=== PATIENT | female | born 1990 | race Caucasian/White ===

== ENCOUNTER 2023-03-29 08:08 | Inpatient (IN) | payer OTHER ==
[2023-03-29] MEDS ORDERED: CITRIC ACID/SODIUM CITRATE 30 ML UNIT-DOSE CUP PO ONE (08:41)
[2023-03-29] MEDS ORDERED: ELECTROLYTE-148 SOLN 500 ML IV ONE (08:41)
[2023-03-29 08:55] VITALS: BMI 37.6
[2023-03-29] MEDS ORDERED: ELECTROLYTE-148 SOLN 500 ML IV SCH (09:10)
[2023-03-29] MEDS ORDERED: OXYTOCIN 20 UNITS in 0.9% NS 20 UNIT/1,000 ML INFUS.BAG IV ONE ×2 (10:08→11:44)
[2023-03-29] MEDS ORDERED: NEOSTIGMINE METHYLSULFATE 0.5 MG/1 ML - 10 ML MDV ONE (10:10)
[2023-03-29] MEDS ORDERED: morphine SULFATE/PF 1 MG/2 ML (2cc Syringe - QUVA) ONE (10:10)
[2023-03-29] MEDS ORDERED: ceFAZolin SODIUM 1 GM VIAL ONE (10:10)
[2023-03-29] MEDS ORDERED: DEXAMETHASONE SOD PHOSPHATE 4 MG/1 ML VIAL ONE (10:41)
[2023-03-29] MEDS ORDERED: ONDANSETRON 4 MG/2 ML VIAL ONE (10:41)
[2023-03-29] MEDS: OXYTOCIN 20 UNITS in 0.9% NS 20 UNIT/1,000 ML INFUS.BAG IV SCH ×2 (11:45→21:43)
[2023-03-29] MEDS ORDERED: ONDANSETRON 4 MG/2 ML VIAL IVPUSH PRN (11:46)
[2023-03-29] MEDS ORDERED: SENNOSIDES/DOCUSATE COMBO (SENNA PLUS) TABLET (UD) PO PRN (11:47)
[2023-03-29] MEDS ORDERED: ONDANSETRON 4 MG/2 ML VIAL IVPB PRN (11:47)
[2023-03-29] MEDS ORDERED: ACETAMINOPHEN 1000 MG/100 ML BAG IVPB PRN (11:48)
[2023-03-29] MEDS ORDERED: IBUPROFEN 800 MG/8 ML IJ IVPB PRN (11:48)
[2023-03-29] MEDS ORDERED: ACETAMINOPHEN INJECTION 100 ML IVPB ONE (13:21)
[2023-03-29] MEDS: ACETAMINOPHEN 1000 MG/100 ML BAG IVPB SCH ×2 (13:25→18:53)
[2023-03-29] MEDS: IBUPROFEN 800 MG/8 ML IJ IVPB SCH ×2 (13:30→21:43)
[2023-03-30] MEDS: ACETAMINOPHEN 1000 MG/100 ML BAG IVPB SCH ×2 (02:09→07:10)
[2023-03-30] MEDS: IBUPROFEN 800 MG/8 ML IJ IVPB SCH (04:14)
[2023-03-30 07:24] LABS: BASO % 0.4 % (0-2.0); EOS % 0.3 % (0-4.5); HEMATOCRIT 29.4 % (32.4-45.2); HEMOGLOBIN 9.2 GM/dL (10.7-15.3); LYMPH % 32.9 % (8-40); MCH 23.2 pg (25.7-33.7); MCHC 31.4 g/dl (32.0-36.0); MEAN CELL VOLUME 73.9 fl (80-96); MEAN PLT VOLUME 8.8 fl (7.5-11.1); MONO % 6.8 % (3.8-10.2); NEUT % 59.6 % (42.8-82.8); PLATELET COUNT 255 10^3/uL (134-434); RBC 3.98 M/mm3 (3.60-5.2); RDW 16.1 % (11.6-15.6); WHITE BLOOD COUNT 9.4 K/mm3 (4.0-10.0)
[2023-03-30] MEDS ORDERED: oxyCODONE HCL 5 MG TABLET PO PRN (10:30)
[2023-03-30] MEDS ORDERED: BISACODYL 10 MG SUPP.RECT RC PRN (11:47)
[2023-03-30] MEDS: SIMETHICONE 80 MG TAB.CHEW (FP) PO PRN ×2 (11:56→18:35)
[2023-03-30] MEDS: IBUPROFEN 600 MG TABLET (FP) PO PRN ×2 (11:56→18:35)
[2023-03-30] MEDS ORDERED: ACETAMINOPHEN 325 MG TABLET (FP) PO PRN (12:30)
[2023-03-30] MEDS: OXYTOCIN 20 UNITS in 0.9% NS 20 UNIT/1,000 ML INFUS.BAG IV SCH (19:53)
[2023-03-30] MEDS: ACETAMINOPHEN 500 MG TABLET (FP) PO PRN (20:54)
[2023-03-31] MEDS: SIMETHICONE 80 MG TAB.CHEW (FP) PO PRN ×3 (00:13→11:01)
[2023-03-31] MEDS: IBUPROFEN 600 MG TABLET (FP) PO PRN ×3 (00:13→12:00)
[2023-03-31] MEDS: ACETAMINOPHEN 500 MG TABLET (FP) PO PRN ×2 (04:20→15:56)
[2023-03-31 11:13] VITALS: BP 108/54; PULSE 75; RESP 17; TEMP 98.1
== END 2023-03-31 17:25 | disposition home or self-care (01) | DRG 540 ==
LOC: JLDR 08:08 → J3W 13:30
PROVIDERS: ADMIT Specialist; ATTEND Specialist
PROC: 10D00Z1 Extraction of Products of Conception, Low, Open Approach (ICD-10-PCS; principal; 2023-03-29)
DX: O34.219 Maternal care for unspecified type scar from previous cesarean delivery (principal); Z3A.39 39 weeks gestation of pregnancy; Z37.0 Single live birth
CPT/HCPCS: 36415; 80053; 85025; 85027; 85610; 85730; 86780; 86850; 86900; 86901; 87389; 87635; 88307-TC

== ENCOUNTER 2024-03-30 08:50 | Emergency (ER) | payer OTHER ==
[2024-03-30 08:54] VITALS: TEMP 98.6; BMI 30.9
[2024-03-30] MEDS ORDERED: ACETAMINOPHEN INJECTION 100 ML IVPB ONE ×2 (09:36→19:25)
[2024-03-30] MEDS: SODIUM CHLORIDE 0.9% 500 ML INFUS.BAG IV ONE (09:51)
[2024-03-30] MEDS: ACETAMINOPHEN 1000 MG/100 ML BAG IVPB ONE ×2 (09:51→20:12)
[2024-03-30 10:40] LABS: BASO % 0.3 % (0-2.0); EOS % 1.3 % (0-4.5); HEMATOCRIT 36.8 % (32.4-45.2); HEMOGLOBIN 11.8 GM/dL (10.7-15.3); LYMPH % 25.3 % (8-40); MCH 25.3 pg (25.7-33.7); MEAN CELL VOLUME 79.1 fl (80-96); MEAN PLT VOLUME 8.4 fl (7.5-11.1); MONO % 5.7 % (3.8-10.2); NEUT % 67.4 % (42.8-82.8); PLATELET COUNT 313 10^3/uL (134-434); RBC 4.65 M/mm3 (3.60-5.2); RDW 13.6 % (11.6-15.6); WHITE BLOOD COUNT 10.2 K/mm3 (4.0-10.0)
[2024-03-30 11:07] LABS: ALBUMIN 3.9 g/dl (3.4-5.0); BILIRUBIN,TOTAL 0.5 mg/dL (0.2-1); CALCIUM 8.9 mg/dL (8.5-10.1); CREATININE 0.8 mg/dL (0.55-1.3); TOT PROT 7.5 g/dl (6.4-8.2)
[2024-03-30 11:21] LABS: BLOOD UREA NITROGEN 10.8 mg/dL (7-18); POTASSIUM 4.5 mmol/L (3.5-5.1)
[2024-03-30 16:31] VITALS: BP 114/64; PULSE 68; RESP 16
== END 2024-03-30 20:38 | disposition home or self-care (01) ==
LOC: JER 08:50
PROC: 3E033NZ Introduction of Analgesics, Hypnotics, Sedatives into Peripheral Vein, Percutaneous Approach (ICD-10-PCS; principal; 2024-03-30)
PROC: 3E033NZ Introduction of Analgesics, Hypnotics, Sedatives into Peripheral Vein, Percutaneous Approach (ICD-10-PCS; 2024-03-30)
DX: O20.0 Threatened abortion (principal)
CPT/HCPCS: 36415; 74181-TC; 76817-TC; 80053; 84702; 84703; 85025; 86850; 86900; 86901; 99284-25; J0131